=== PATIENT | male | born 1985 | race Caucasian/White ===

== ENCOUNTER 2017-09-30 18:01 | Emergency (ER) | payer MEDICAID, MEDICARE ==
[~2017-09-30] VITALS: Ht 180.3 cm; Wt 110.0 kg
[~2017-09-30 18:01] MED LIST: CEPH500B PO; DIVA500T35 PO; DOXY50 PO; PALI6 IM; SERT100T12 PO
[2017-09-30 19:52] VITALS: BP 128/81
== END 2017-09-30 19:54 | disposition home or self-care (01) ==
LOC: EMS 18:03
DX: K59.00 Constipation, unspecified (principal); M54.5 Low back pain; G89.29 Other chronic pain; F43.10 Post-traumatic stress disorder, unspecified; I10 Essential (primary) hypertension; F17.210 Nicotine dependence, cigarettes, uncomplicated; Z88.6 Allergy status to analgesic agent; Z88.8 Allergy status to other drugs, medicaments and biological substances
CPT/HCPCS: 99283